=== PATIENT | male | born 1955 | race Caucasian/White ===

== ENCOUNTER → 2018-06-22 | Outpatient (CLI) | payer OTHER ==
--- NOTE | 2018-06-22 16:21 | CONS ---
CONSULTATION REASON FOR THE CONSULTATION: Disrupted sleep. 63-year-old male patient, obese with known history of coronary artery disease coming in for poor sleep quality. The patient has been having trouble in sleep initiation and maintenance. He goes to bed around 11:00 pm and sometimes taking up to a few hours to fall asleep. Any time he would fall asleep, he would wake up, and he has difficulty in initiating his sleep back again. On average, he is sleeping about 4-5 hours per night. He has been having issues with chronic insomnia for many years. Typically he is unable to sleep because of thinking of various stuff which distracts him from falling into sleep. Despite all this, the patient is able to wake up relatively refreshed and he does not fall asleep during the day. He is able to function appropriately without having problems with attention span or memory or concentration and he does not even fall asleep while doing day-to-day activities. He is able to drive long distances without falling asleep behind the wheel. He has chronic arthritic pain and pain obviously is an issue affecting his sleep quality in general. No sinus allergies. No headaches. No nocturnal heartburn at this point in time. No significant anxiety or depression or any other psychiatric disorder. No substance abuse. No alcoholism. Sleep hygiene measures are generally okay and the patient does not drink coffee in excess. No TV in the bedroom environment. He sleeps on his side. He does snore however and at times his has noted that he quits breathing. He is currently losing weight and has lost approximately 10-15 pounds and he is in the process of losing more weight. Especially after a recent heart attack that he experienced. PAST MEDICAL HISTORY: Obesity, coronary artery disease. Recent heart attack requiring coronary intervention and stenting, hyperlipidemia, osteoarthritis, obesity and hypertension. SURGICAL HISTORY: Includes catheterization and stenting x3. ALLERGIES: Not known. OUTPATIENT MEDICATION LIST: Includes metoprolol 50 mg twice a day. Lipitor 80 daily, Plavix 75 daily, lisinopril 20 daily, omeprazole 20 a day. Aspirin 325 daily. SOCIAL HISTORY: Nonsmoker. No history of alcohol. No history of IV drugs. Family history is negative for sleep apnea. REVIEW OF SYSTEMS: 12-point review of system was done. No sleep paralysis. No hallucinations. No cataplexy, the patient does not take any significant naps during the day. He is trying to lose weight. He used to weight 283 pounds approximately year ago. He is currently down to 250. He wakes up somewhere between 6-8 times per night. His sleep is very much fragmented. Does not watch TV in the bedroom. No grinding of the teeth. No restlessness in lower extremities. Pain is an issue and the patient becomes restless and tosses and turns because of ongoing arthritic pain. PHYSICAL EXAMINATION: BP is 133/80, pulse is 54, respirations 16, temperature 98.2, saturation 97% on room air. Weight is 254. Height is 5 feet 6 inches, neck size 18 inches and BMI is 40.9. General appearance: Calm and comfortable. Head is atraumatic, normocephalic. NECK: Short, supple. Mallampati class 4. No goiter or neck masses. Lungs diminished otherwise clear. HEART: Sounds are regular. Normal S1, S2. No S3. No murmurs. ABDOMEN: Soft, nontender. No organomegaly. EXTREMITIES: No edema. No cyanosis or clubbing. NEUROLOGIC: The patient is alert and oriented x3. There is no focal neurological deficits. SKIN: Negative for any wounds or ulceration. IMPRESSION: 1. Chronic insomnia with possibly a suspected component of obstructive sleep apnea. 2. Destructive sleep secondary to above. Rule out underlying sleep misconception. 3. Obesity with ongoing weight loss. The patient continues to lose weight for now. Current BMI is down to 40.9. 4. Coronary artery disease with previous myocardial infarction, stenting. 5. Hypertension. 6. Hyperlipidemia. PLAN: 1. Obviously the patient will need a sleep study to assess the sleep architecture, quality, maintenance and look for any other comorbidities such as obstructive sleep apnea and restless legs. 2. Will hold off the sleep study right now pending further weight loss. The patient is losing weight and will give another 3 months to plateau his weight as low as possible prior to doing a sleep study. 3. Sleep hygiene measures were discussed and all of them are appropriate. 4. Overall condition is stable. The patient does not have major hypersomnia or sleepiness. Lund score is 7. 5. Despite his report of insomnia, he has had no major tiredness and sleepiness and fatigue during the day. As such, we will wait till his weight plateaus and subsequently we will do a polysomnogram. MMODL / IJN: [id number] /
== END | disposition home or self-care (01) ==
LOC: SLEEP 13:12
PROVIDERS: ATTEND Internal Medicine
DX: F51.04 Psychophysiologic insomnia (principal); I25.10 Atherosclerotic heart disease of native coronary artery without angina pectoris; I10 Essential (primary) hypertension; E78.5 Hyperlipidemia, unspecified; I25.2 Old myocardial infarction; E66.9 Obesity, unspecified; Z68.41 Body mass index [BMI] 40.0-44.9, adult; Z79.899 Other long term (current) drug therapy; Z79.02 Long term (current) use of antithrombotics/antiplatelets; Z79.82 Long term (current) use of aspirin
CPT/HCPCS: 99211

== ENCOUNTER 2019-10-02 19:08 | Emergency (ER) | payer OTHER ==
[2019-10-02 19:16] VITALS: RESP 18; TEMP 97.6
[2019-10-02] MEDS ORDERED: SODIUM CHLORIDE 0.9% 500 ML 500 ML IV STA (19:43)
[2019-10-02] MEDS ORDERED: MECLIZINE 12.5 MG TAB PO STA (19:43)
--- NOTE | 2019-10-02 20:11 | ED ---
Dizziness HPI - General Chief Complaint: Dizziness Stated Complaint: Dizzy, nausea Time Seen by Provider: 10/02/19 19:34 Source: patient Mode of arrival: wheelchair Limitations: no limitations - History of Present Illness Initial Comments: 64-year-old male patient presents to the emergency department today for evaluation of dizziness. Patient states that early this morning while in bed he was stretching when he felt a snap in the lower part of his posterior neck and then had sudden onset of dizziness. Patient states that the dizziness has persisted throughout the day. Patient states that ever he sits up or stands up the room starts to spin. Patient states that he has had some mild discomfort to the neck. States he has chronic numbness and tingling to the hands which has not changed. He denies any pain radiation down the arms. Denies any headache, blurred vision, or double vision. Denies any chest pain or shortness of breath. Denies any vomiting but states he has been nauseous. Denies taking any medication for his symptoms. Denies history of similar symptoms. Patient denies any recent rash, fever, chills, abdominal pain, diarrhea, constipation, back pain, weakness, hematuria, dysuria, urinary urgency, urinary frequency, or any other complaints. - Related Data Home Medications Medication Instructions Recorded Confirmed Omeprazole 20 mg PO DAILY 10/07/17 10/07/17 Zolpidem [Ambien] 10 mg PO HS 10/08/17 10/08/17 Previous Rx's Medication Instructions Recorded Aspirin 81 mg PO DAILY chew 10/10/17 Atorvastatin [Lipitor] 80 mg PO DAILY #30 tab 10/10/17 Clopidogrel [Plavix] 75 mg PO DAILY #30 tab 10/10/17 Lisinopril [Zestril] 20 mg PO DAILY #30 tab 10/10/17 Metoprolol Tartrate [Lopressor] 50 mg PO BID #60 tab 10/10/17 Nitroglycerin Sl Tabs [Nitrostat] 0.4 mg SUBLINGUAL Q5M PRN #7 tab 10/10/17 Azithromycin 250 mg PO DAILY 4 Days #4 tab 10/02/19 Fluticasone Nasal [place] [Flonase 2 spr EA NOSTRIL DAILY #1 bottle 10/02/19 Nasal [place]escue] Loratadine [Claritin] 10 mg PO DAILY #30 tablet 10/02/19 Meclizine HCl 25 mg PO BID #14 tablet 10/02/19 Allergies Allergy/AdvReac Type Severity Reaction Status Date / Time No Known Allergies Allergy Verified 10/02/19 19:16 Review of Systems ROS Statement: Those systems with pertinent positive or pertinent negative responses have been documented in the HPI. ROS Other: All systems not noted in ROS Statement are negative. Past Medical History Past Medical History: GERD/Reflux, Hyperlipidemia, Hypertension, Myocardial Infarction (OK) History of Any Multi-Drug Resistant Organisms: None Reported Past Surgical History: Appendectomy, Heart Catheterization With Stent, Orthopedic Surgery Additional Past Surgical History / Comment(s): Neck surg. Past Anesthesia/Blood Transfusion Reactions: No Reported Reaction Past Psychological History: No Psychological Hx Reported Smoking Status: Never smoker Past Alcohol Use History: Rare Past Drug Use History: None Reported - Past Family History Mother Family Medical History: AICD/Pacemaker, Coronary Artery Disease (CAD), Myocardial Infarction (OK) Father Family Medical History: AFIB, Congestive Heart Failure (CHF), Coronary Artery Disease (CAD) General Exam Limitations: no limitations General appearance: alert, in no apparent distress, other (this is a well- developed, well-nourished adult male patient in no acute distress.) Eye exam: Present: normal appearance, PERRL, EOMI, nystagmus (bilateral horizontal gaze nystagmus). Absent: scleral icterus, conjunctival injection, periorbital swelling ENT exam: Present: normal exam, normal oropharynx, mucous membranes moist Neck exam: Present: normal inspection, full ROM, other (Nontender, no step-off, no deformity to firm midline palpation of the posterior cervical spine. Full range of motion without pain or limitation.). Absent: tenderness, meningismus, lymphadenopathy Respiratory exam: Present: normal lung sounds bilaterally. Absent: respiratory distress, wheezes, rales, rhonchi, stridor Cardiovascular Exam: Present: regular rate, normal rhythm, normal heart sounds. Absent: systolic murmur, diastolic murmur, rubs, gallop, clicks GI/Abdominal exam: Present: soft, normal bowel sounds. Absent: distended, tenderness, guarding, rebound, rigid Neurological exam: Present: alert, oriented X3, CN II-XII intact, normal gait Expanded Speech: Present: fluid speech Cranial nerves: EOM's Intact: Normal, Tongue Deviation: Normal Motor strength exam: RUE: 5, LUE: 5, RLE: 5, LLE: 5 Eye Response: (4) open spontaneously Motor Response: (6) obeys commands Verbal Response: (5) oriented [place] Total: 15 Psychiatric exam: Present: normal affect, normal mood Skin exam: Present: warm, dry, intact, normal color. Absent: rash Course Vital Signs 10/02/19 10/02/19 10/02/19 19:14 19:25 20:56 Temperature 97.6 F Pulse Rate 57 L 58 L Respiratory 18 18 Rate Blood Pressure 188/105 182/104 163/91 O2 Sat by Pulse 97 98 Oximetry EKG Findings - EKG Comments: EKG Findings:: EKG obtained in 194 shows sinus bradycardia with a ventricular rate of 56, HI interval 156, QRS duration 84, QT 426, QTc 411. No evidence of ST elevation or depression. Medical Decision Making - Medical Decision Making 64-year-old male patient presents to the emergency department today for evaluation of dizziness. patient reported stretching and feeling a pop in his neck prior to onset of symptoms. Physical examination is unremarkable. Patient is neurologically intact with no focal deficits. There is no cervical spinal tenderness. Blood pressure was quite elevated upon arrival. Labs reviewed and were unremarkable. CT brain without contrast was normal, CT angiography of the head and neck was obtained and was unremarkable. There was evidence of left maxillary sinusitis. Patient was given meclizine and IV fluids here in the emergency department. Upon reevaluation he does report improvement symptoms. He is able to ambulate without difficulty. He'll be discharged to follow-up with his primary care physician for recheck in 1-2 days. He'll be given prescriptions for Claritin, Flonase, and azithromycin for sinusitis. Return parameters discussed in detail. He verbalizes understanding and agrees with this plan. - Lab Data Result diagrams: 10/02/19 19:40 10/02/19 19:40 Lab Results 10/02/19 10/02/19 10/02/19 Range/Units 19:40 19:40 19:40 WBC 8.1 (3.8-10.6) k/uL RBC 5.45 (4.30-5.90) m/uL Hgb 15.4 (13.0-17.5) gm/dL Hct 47.5 (39.0-53.0) % MCV 87.1 (80.0-100.0) fL MCH 28.3 (25.0-35.0) pg MCHC 32.5 (31.0-37.0) g/dL RDW 13.7 (11.5-15.5) % Plt Count 299 (150-450) k/uL Neutrophils % 75 % Lymphocytes % 15 % Monocytes % 6 % Eosinophils % 1 % Basophils % 0 % Neutrophils # 6.1 (1.3-7.7) k/uL Lymphocytes # 1.2 (1.0-4.8) k/uL Monocytes # 0.5 (0-1.0) k/uL Eosinophils # 0.1 (0-0.7) k/uL Basophils # 0.0 (0-0.2) k/uL PT 10.1 (9.0-12.0) sec INR 0.9 (<1.2) APTT 22.3 (22.0-30.0) sec Sodium 139 (137-145) mmol/L Potassium 4.9 (3.5-5.1) mmol/L Chloride 105 (98-107) mmol/L Carbon Dioxide 22 (22-30) mmol/L Anion Gap 12 mmol/L BUN 15 (9-20) mg/dL Creatinine 0.74 (0.66-1.25) mg/dL Est GFR (CKD-EPI)AfAm >90 (>60 ml/min/1.73 sqM) Est GFR (CKD-EPI)NonAf >90 (>60 ml/min/1.73 sqM) Glucose 118 H (74-99) mg/dL Calcium 9.4 (8.4-10.2) mg/dL Total Bilirubin 0.6 (0.2-1.3) mg/dL AST 23 (17-59) U/L ALT 22 (4-49) U/L Alkaline Phosphatase 116 (38-126) U/L Troponin I (0.000-0.034) ng/mL Total Protein 7.6 (6.3-8.2) g/dL Albumin 4.4 (3.5-5.0) g/dL Urine Color Urine Appearance (Clear) Urine pH (5.0-8.0) Ur Specific [place] (1.001-1.035) Urine Protein (Negative) Urine Glucose (UA) (Negative) Urine Ketones (Negative) Urine Blood (Negative) Urine Nitrite (Negative) Urine Bilirubin (Negative) Urine Urobilinogen (<2.0) mg/dL Ur Leukocyte Esterase (Negative) 10/02/19 10/02/19 Range/Units 19:40 21:00 WBC (3.8-10.6) k/uL RBC (4.30-5.90) m/uL Hgb (13.0-17.5) gm/dL Hct (39.0-53.0) % MCV (80.0-100.0) fL MCH (25.0-35.0) pg MCHC (31.0-37.0) g/dL RDW (11.5-15.5) % Plt Count (150-450) k/uL Neutrophils % % Lymphocytes % % Monocytes % % Eosinophils % % Basophils % % Neutrophils # (1.3-7.7) k/uL Lymphocytes # (1.0-4.8) k/uL Monocytes # (0-1.0) k/uL Eosinophils # (0-0.7) k/uL Basophils # (0-0.2) k/uL PT (9.0-12.0) sec INR (<1.2) APTT (22.0-30.0) sec Sodium (137-145) mmol/L Potassium (3.5-5.1) mmol/L Chloride (98-107) mmol/L Carbon Dioxide (22-30) mmol/L Anion Gap mmol/L BUN (9-20) mg/dL Creatinine (0.66-1.25) mg/dL Est GFR (CKD-EPI)AfAm (>60 ml/min/1.73 sqM) Est GFR (CKD-EPI)NonAf (>60 ml/min/1.73 sqM) Glucose (74-99) mg/dL Calcium (8.4-10.2) mg/dL Total Bilirubin (0.2-1.3) mg/dL AST (17-59) U/L ALT (4-49) U/L Alkaline Phosphatase (38-126) U/L Troponin I <0.012 (0.000-0.034) ng/mL Total Protein (6.3-8.2) g/dL Albumin (3.5-5.0) g/dL Urine Color Yellow Urine Appearance Clear (Clear) Urine pH 7.0 (5.0-8.0) Ur Specific [place] 1.019 (1.001-1.035) Urine Protein Trace H (Negative) Urine Glucose (UA) Negative (Negative) Urine Ketones Negative (Negative) Urine Blood Negative (Negative) Urine Nitrite Negative (Negative) Urine Bilirubin Negative (Negative) Urine Urobilinogen <2.0 (<2.0) mg/dL Ur Leukocyte Esterase Negative (Negative) - Radiology Data Radiology results: report reviewed, image reviewed CT angio head and neck was obtained. Report was reviewed in its entirety. Impression by Dr. Gamble shows negative CT angiogram of the neck. Negative CT angiogram of the brain. 2 views of the chest are obtained. Report was reviewed in its entirety. No active cardiopulmonary disease. Normal heart. CT brain without contrast obtained. Report was reviewed in its entirety. Impression by Dr. Gamble shows negative computed tomography scan of the brain. Left maxillary sinusitis noted. Disposition Clinical Impression: Dizziness, Left maxillary sinusitis, Hypertension Disposition: HOME SELF-CARE Condition: Good Instructions (If sedation given, give patient instructions): Sinusitis (ED), Chronic Hypertension (ED), Dizziness (ED) Additional Instructions: take medications as directed. Primary care physician for recheck in 1-2 days. Return to the emergency department immediately for any new, worsening, or concerning symptoms. Prescriptions: Azithromycin 250 mg PO DAILY 4 Days #4 tab Loratadine [Claritin] 10 mg PO DAILY #30 tablet Fluticasone Nasal [place] [Flonase Nasal [place]ue] 2 spr EA NOSTRIL DAILY #1 bottle Meclizine HCl 25 mg PO BID #14 tablet Is patient prescribed a controlled substance at d/c from ED?: No Referrals: Tito Toussaint MD [Primary Care Provider] - 1-2 days Time of Disposition: 21:52
[2019-10-02 20:21] LABS: Basophils % (A) 0 %; Eosinophils # (A) 0.1 k/uL (0-0.7); Eosinophils % (A) 1 %; HCT 47.5 % (39.0-53.0); HGB 15.4 gm/dL (13.0-17.5); Lymphocytes # (A) 1.2 k/uL (1.0-4.8); Lymphocytes % (A) 15 %; MCH 28.3 pg (25.0-35.0); MCHC 32.5 g/dL (31.0-37.0); MCV 87.1 fL (80.0-100.0); Mean Platelet Volume 6.9; Monocytes # (A) 0.5 k/uL (0-1.0); Monocytes % (A) 6 %; Neutrophils # (A) 6.1 k/uL (1.3-7.7); Neutrophils % (A) 75 %; Platelet Count 299 k/uL (150-450); RBC 5.45 m/uL (4.30-5.90); RDW 13.7 % (11.5-15.5); WBC 8.1 k/uL (3.8-10.6)
[2019-10-02 20:32] LABS: ALT 22 U/L (4-49); AST 23 U/L (17-59); African American GFR (CKD) >90 (>60 ml/min/1.73 sqM); Albumin 4.4 g/dL (3.5-5.0); Alkaline Phosphatase 116 U/L (38-126); Anion Gap 12 mmol/L; Blood Urea Nitrogen 15 mg/dL (9-20); Calcium 9.4 mg/dL (8.4-10.2); Carbon Dioxide 22 mmol/L (22-30); Chloride 105 mmol/L (98-107); Glucose 118 mg/dL (74-99); INR 0.9 (<1.2); Non-African American GFR(CKD) >90 (>60 ml/min/1.73 sqM); Partial Thromboplastin Time 22.3 sec (22.0-30.0); Potassium 4.9 mmol/L (3.5-5.1); Prothrombin Time 10.1 sec (9.0-12.0); Sodium 139 mmol/L (137-145); Total Bilirubin 0.6 mg/dL (0.2-1.3); Total Protein 7.6 g/dL (6.3-8.2)
--- NOTE | 2019-10-02 21:14 | CT ---
EXAMINATION TYPE: CT brain wo con DATE OF EXAM: 10/02/2019 COMPARISON: None HISTORY: Dizziness. CT DLP: 1142.8 mGycm Automated exposure control for dose reduction was used. Ventricles have fairly normal size. There is no mass effect nor midline shift. There is no sign of in tracranial hemorrhage. The calvarium is intact. Skull base appears normal. There is some debris in th e right external auditory canal. IMPRESSION: Negative CT scan of the brain. left maxillary sinusitis noted.
--- NOTE | 2019-10-02 21:16 | XR ---
EXAMINATION TYPE: XR chest 2V DATE OF EXAM: 10/02/2019 COMPARISON: 10/07/2017 HISTORY: Dizziness and wheezing TECHNIQUE: 2 views FINDINGS: There is no heart failure nor confluent pneumonic infiltrate. Costophrenic angles are clear . There are chest leads. IMPRESSION: No active cardiopulmonary disease. Normal heart.
--- NOTE | 2019-10-02 21:30 | CT ---
EXAMINATION TYPE: CT angio head neck DATE OF EXAM: 10/02/2019 COMPARISON: HISTORY: Dizziness. CT DLP: 964.2 mGycm Automated exposure control for dose reduction was used. CONTRAST: Performed with IV Contrast, patient injected with 65 mL of Isovue 370. Multiple axial sections were obtained from the aortic arch to the vertex of the brain with intravenou s contrast. There are 3-D post processed images. There is normal branching pattern of the great vessels on the aortic arch. There is bilateral arteria l flow in the subclavian arteries. There is arterial flow in the vertebral arteries bilaterally. Vert ebral arteries are fairly symmetric. There is arterial flow in the common internal and external carot id arteries bilaterally. There is no evidence of stenosis. There is no evidence of carotid or vertebr al artery aneurysm or dissection. There is arterial flow in the vertebrobasilar artery system. There is arterial flow in the anterior m iddle and posterior cerebral arteries. There is no mass effect. There is no evidence of aneurysm or n eovascularity. There is normal contrast opacification of the venous sinuses. I see no evidence of intracranial arterial stenosis. IMPRESSION: Negative CT angiogram of the neck. Negative CT angiogram of the brain.
[2019-10-02 21:34] LABS: Appearance,Urine Clear (Clear); Bilirubin,Urine Negative (Negative); Blood,Urine Negative (Negative); Color,Urine Yellow; Glucose,Urine (UA) Negative (Negative); Ketones,Urine Negative (Negative); Leukocyte Esterase,Urine Negative (Negative); Nitrite,Urine Negative (Negative); Protein,Urine Trace (Negative); Specific Gravity,Urine 1.019 (1.001-1.035); Urobilinogen,Urine <2.0 mg/dL (<2.0)
[2019-10-02] MEDS ORDERED: AZITHROMYCIN 500 MG TAB PO STA (21:49)
[2019-10-02 22:10] VITALS: BP 139/82; PULSE 88
== END 2019-10-02 22:14 | disposition home or self-care (01) ==
LOC: EC 19:08
DX: I10 Essential (primary) hypertension (principal); R42 Dizziness and giddiness; J32.0 Chronic maxillary sinusitis; R11.0 Nausea; R20.0 Anesthesia of skin; R20.2 Paresthesia of skin; K21.9 Gastro-esophageal reflux disease without esophagitis; I25.2 Old myocardial infarction; Z95.5 Presence of coronary angioplasty implant and graft; Z79.899 Other long term (current) drug therapy
CPT/HCPCS: 36415; 93005; 80053; 84484; 85025; 85610; 85730; 81003; 71046; 70496; 70450; 70498; 99284; Q9967

== ENCOUNTER 2019-11-13 11:12 | Emergency (ER) | payer OTHER ==
[2019-11-13 11:21] VITALS: BP 160/99; PULSE 56; RESP 18; TEMP 97.5
[2019-11-13] MEDS ORDERED: KETOROLAC 30 MG/ML 1 ML VIAL IM STA (12:05)
--- NOTE | 2019-11-13 12:46 | XR ---
EXAMINATION TYPE: XR Hip RT and AP Pelvis , 3 VIEWS DATE OF EXAM ORDERED: 11/13/2019 HISTORY: hip pain. COMPARISON: None. FINDINGS: Osseous structures about the pelvis are unremarkable. No fracture or dislocation is seen. Hip joints are reasonably well-maintained. There is some vascular calcification on the left. IMPRESSION: NO ACUTE OSSEOUS LESION.
--- NOTE | 2019-11-13 12:53 | CT ---
EXAMINATION TYPE: CT lumbar spine wo con DATE OF EXAM: 11/13/2019 12:36 PM COMPARISON: None. HISTORY: Hip and back pain CT DLP: 2429.4 mGycm Automated exposure control for dose reduction was used. Unenhanced CT of the lumbar spine was performed. Bone and soft tissue window settings are submitted as well as coronal and sagittal reconstructions. FINDINGS: Visualized portions of the lungs are clear. There is a 1.3 cm fatty mass involving the right adrenal gland. This undoubtedly represents a myolipo ma. There is minimal atheromatous calcification of the aorta. Paraspinal soft tissues are otherwise n ormal. There is a minimal retrograde listhesis of L4 and L5. Alignment is otherwise maintained. At T12-L1, there is disc space loss and a vacuum phenomena. This hypertrophic spondylosis present. In tervertebral foramina are well maintained. There is no significant compressive discopathy. The facets are unremarkable. L1-L2: No definite abnormality is seen. L2-L3: Intervertebral foramina are well maintained. There is a diffuse disc displacement mildly effac ing the thecal sac. There is mild hypertrophic change in the facets. L3-L4: The intervertebral foramina are well maintained. There is a diffuse disc displacement. This is effacing the thecal sac. There are mild hypertrophic changes in the facets. L4-L5: There is disc space loss and a vacuum phenomena. There is a mild retrograde listhesis of L4 an d L5. There is a mild pseudodisc. There are hypertrophic changes in the facets. There is mild trefoil ing of the thecal sac. L5-S1: There is mild, bilateral intervertebral foraminal narrowing. There is no significant compressi ve discopathy. There are marked hypertrophic changes in the facets. IMPRESSION: 1. 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 2. MILD RETROGRADE LISTHESIS OF L4 AND L5 DEGENERATIVE IN NATURE. 3. BILATERAL INTERVERTEBRAL FORAMINAL NARROWING, L5-S1 DUE TO MARKED HYPERTROPHIC CHANGES IN THE FACE TS.
--- NOTE | 2019-11-13 13:17 | ED ---
General Adult HPI - General Chief complaint: Extremity Problem,Nontraumatic Stated complaint: Hip pain Time Seen by Provider: 11/13/19 11:35 Source: patient, RN notes reviewed Mode of arrival: wheelchair Limitations: no limitations - History of Present Illness Initial comments: 64-year-old male with a past medical history of hyperlipidemia, hypertension, GERD presents to the emergency department for a chief of right hip and calf pain. Patient states he has had calf numbness for about a year. States that in the past 3 days he has not cramping pain in his calf. States he also has a new pain in his right hip that goes through his buttock. States that when he lifts his leg the pain shoots down his leg. States he has chronic back pain. Denies numbness in the groin or buttock. Denies bladder or bowel changes. States his right hip pain is difficult to ambulate on but he denies injuries. No fevers or chills. Patient is on Plavix for cardaic stents. Patient has no other complaints at this time including shortness of breath, chest pain, abdominal pain, nausea or vomiting, headache, or visual changes. - Related Data Home Medications Medication Instructions Recorded Confirmed Omeprazole 20 mg PO DAILY 10/07/17 10/07/17 Zolpidem [Ambien] 10 mg PO HS 10/08/17 10/08/17 Previous Rx's Medication Instructions Recorded Aspirin 81 mg PO DAILY chew 10/10/17 Atorvastatin [Lipitor] 80 mg PO DAILY #30 tab 10/10/17 Clopidogrel [Plavix] 75 mg PO DAILY #30 tab 10/10/17 Lisinopril [Zestril] 20 mg PO DAILY #30 tab 10/10/17 Metoprolol Tartrate [Lopressor] 50 mg PO BID #60 tab 10/10/17 Nitroglycerin Sl Tabs [Nitrostat] 0.4 mg SUBLINGUAL Q5M PRN #7 tab 10/10/17 Azithromycin 250 mg PO DAILY 4 Days #4 tab 10/02/19 Fluticasone Nasal [place] [Flonase 2 spr EA NOSTRIL DAILY #1 bottle 10/02/19 Nasal [place]] Loratadine [Claritin] 10 mg PO DAILY #30 tablet 10/02/19 Meclizine HCl 25 mg PO BID #14 tablet 10/02/19 Acetaminophen [Tylenol] 500 mg PO Q4-6H PRN #20 tab 11/13/19 Ibuprofen [Motrin] 600 mg PO Q8HR PRN #20 tab 11/13/19 predniSONE 50 mg PO DAILY #5 tablet 11/13/19 Allergies Allergy/AdvReac Type Severity Reaction Status Date / Time No Known Allergies Allergy Verified 11/13/19 11:21 Review of Systems ROS Statement: Those systems with pertinent positive or pertinent negative responses have been documented in the HPI. ROS Other: All systems not noted in ROS Statement are negative. Past Medical History Past Medical History: GERD/Reflux, Hyperlipidemia, Hypertension, Myocardial Infarction (MD) History of Any Multi-Drug Resistant Organisms: None Reported Past Surgical History: Appendectomy, Heart Catheterization With Stent, Orthopedic Surgery Additional Past Surgical History / Comment(s): Neck surg. Past Anesthesia/Blood Transfusion Reactions: No Reported Reaction Past Psychological History: No Psychological Hx Reported Smoking Status: Never smoker Past Alcohol Use History: Rare Past Drug Use History: None Reported - Past Family History Mother Family Medical History: AICD/Pacemaker, Coronary Artery Disease (CAD), Myocardial Infarction (MD) Father Family Medical History: AFIB, Congestive Heart Failure (CHF), Coronary Artery Disease (CAD) General Exam Limitations: no limitations General appearance: alert, in no apparent distress Head exam: Present: atraumatic, normocephalic, normal inspection Eye exam: Present: normal appearance, PERRL, EOMI. Absent: scleral icterus, conjunctival injection, periorbital swelling ENT exam: Present: normal exam, mucous membranes moist Neck exam: Present: normal inspection, full ROM. Absent: tenderness, meningismus, lymphadenopathy Respiratory exam: Present: normal lung sounds bilaterally. Absent: respiratory distress, wheezes, rales, rhonchi, stridor Cardiovascular Exam: Present: regular rate, normal rhythm, normal heart sounds. Absent: systolic murmur, diastolic murmur, rubs, gallop, clicks GI/Abdominal exam: Present: soft, normal bowel sounds. Absent: distended, tenderness, guarding, rebound, rigid Extremities exam: Present: full ROM (Patient has full flexion of the right hip when the knee is bent. However patient has pain in the right buttock and hip when the hip is flexed with the knee extended.), normal capillary refill (cap refill less than 2 seconds, DP pulse 2+ in the right lower extremity.), other (Positive straight leg raise test. Skin exam is normal. No erythema or evidence of cellulitis. ). Absent: tenderness (No tenderness of the right hip.), pedal edema, calf tenderness (No tenderness of the calf. No erythema or edema noted of the right calf.) Back exam: Absent: vertebral tenderness Course Vital Signs 11/13/19 11:19 Temperature 97.5 F L Pulse Rate 56 L Respiratory 18 Rate Blood Pressure 160/99 O2 Sat by Pulse 97 Oximetry Medical Decision Making - Medical Decision Making 64-year-old male presents to the emergency department for a chief complaint of right calf pain. This is also accompanied with back pain as well as right buttock pain. Worsens with extension of the knee and flexion of the hip, posi tive straight leg raise test. Neurovascular intact in the right lower extremity. Patient ambulatory. Ultrasound negative for DVT. CT of the lumbar spine shows degenerative changes. No obvious disc herniation. Hip and pelvis x-ray shows no acute osseous lesion. Patient was given pain medications, feeling much better. He was also evaluated by Dr. Marquez who did a physical exam. Distant with sciatica nerve pain. Patient will be treated with steroids and pain medication. He does not have a history of diabetes. He will follow up with primary care tomorrow and will also be given the name of orthopedics. Disposition Clinical Impression: Leg pain, right Disposition: HOME SELF-CARE Condition: Good Instructions (If sedation given, give patient instructions): Lumbar Radiculopathy (ED) Additional Instructions: Please take Motrin and Tylenol alternating as needed. Please take steroid as directed. Be sure to eat while taking Motrin and steroid together as they can cause stomach erosion. Please follow-up with primary care tomorrow. Follow-up with orthopedics in one to 2 days. Return to the emergency Department if you're having any worsening symptoms. Prescriptions: Ibuprofen [Motrin] 600 mg PO Q8HR PRN #20 tab PRN Reason: Pain predniSONE 50 mg PO DAILY #5 tablet Acetaminophen [Tylenol] 500 mg PO Q4-6H PRN #20 tab PRN Reason: Pain Is patient prescribed a controlled substance at d/c from ED?: No Referrals: Jacinto Haines MD [Primary Care Provider] - 1-2 days Time of Disposition: 15:02
[2019-11-13] MEDS ORDERED: MORPHINE SULFATE 4 MG/ML SYRINGE IM STA (13:58)
--- NOTE | 2019-11-13 14:10 | US ---
EXAMINATION TYPE: US venous doppler duplex LE RT DATE OF EXAM: 11/13/2019 1:31 PM COMPARISON: NONE CLINICAL HISTORY: L calf pain. Right calf pain, and numbness, no h/o dvt SIDE PERFORMED: Right TECHNIQUE: The lower extremity deep venous system is examined utilizing real time linear array sonog justin with graded compression, doppler sonography and color-flow sonography. VESSELS IMAGED: External Iliac Vein (EIV) Common Femoral Vein Deep Femoral Vein Greater Saphenous Vein * Femoral Vein Popliteal Vein Small Saphenous Vein * Proximal Calf Veins (* superficial vessels) *Unable to fully compress right EIV due to patient baring down, unable tolerate pressure and relax to achieve compression, good blood flow with no signs of clot at EIV Right Leg: Appears negative for DVT at this time, rouleaux flow was noted within prx calf veins up t hrough popiteal vein, good compression and blood flow was seen, just slower then normal. IMPRESSION: No evidence of deep venous thrombosis in the right leg.
[2019-11-13] MEDS ORDERED: predniSONE 50 MG TAB PO STA (14:59)
[2019-11-13] MEDS ORDERED: ACET/COD 300 MG/30 MG STARTER PACK 6 TAB BTL PO STA (14:59)
== END 2019-11-13 15:30 | disposition home or self-care (01) ==
LOC: EC 11:12
DX: M25.551 Pain in right hip (principal); M79.661 Pain in right lower leg; G89.29 Other chronic pain; M47.816 Spondylosis without myelopathy or radiculopathy, lumbar region; K21.9 Gastro-esophageal reflux disease without esophagitis; I10 Essential (primary) hypertension; I25.2 Old myocardial infarction; Z79.02 Long term (current) use of antithrombotics/antiplatelets; Z79.899 Other long term (current) drug therapy; Z95.5 Presence of coronary angioplasty implant and graft
CPT/HCPCS: 73502; 93971; 72131; 99284; 96372 ×2; J2270; J1885; J7512

== ENCOUNTER → 2019-12-19 | Outpatient (CLI) | payer OTHER ==
[2019-12-19 12:07] VITALS: BP 173/62; PULSE 79; RESP 16
--- NOTE | 2019-12-20 13:51 | P.PAINCN ---
History of Present Illness - Reason for Consult Consult date: 12/19/19 - History of Present Illness This is a 64-year-old patient referred by Dr. Haines with a chief complaint of chronic pain in right low back with radiation to and right hip, lateral aspect of right leg, lateral aspect of right calf, ending just above the ankle. Back pain equals leg pain in intensity. He does complain of subjective weakness, stating that his legs "weigh 50 pounds" and feels that his gait has slowed down. He does have associated numbness from below-knee- lateral aspect of calf and entire foot. He has had low back pain for over a year, it has significantly worsened over the last month. He went to the emergency room approximately 1 month ago for pain and was given a steroid taper, he is currently on the last week of the taper. He rates his pain as 3/10 currently. Pain is worse with walking, in the mornings and better with rest, heat, medications. Medications include Tylenol 3 and Flexeril. He is experiencing mild side effects of the form of constipation and drowsiness. He has not had physical therapy in the past, he has not had any prior pain procedures, he has not undergone surgery. Patient denies adverse drug effects from medications. Patient also denies new-onset weakness, bowel/bladder incontinence, or any other signs or symptoms of cauda equina syndrome. There are no signs of acute intoxication, and no indications of medication diversion or overuse. In addition to above, 13-point review of systems is also negative for chest pain, shortness of breath, changes in vision, changes in hearing, new onset weakness, abdominal pain, diarrhea, extreme fatigue, malaise, fever, skin changes, homicidal or suicidal ideation, or bowel or bladder incontinence. Physical exam: Vital Signs: Reviewed in EMR, not his blood pressure is elevated at 173/69. GENERAL: Well appearing, in no acute distress, morbidly obese PSYCH: Mood and affect is appropriate. Awake, alert, and oriented SKIN: Skin color, texture, turgor normal, no rashes or lesions HEENT: Normocephalic, atraumatic. EOM intact CV: No pedal edema RESP: Respirations are unlabored, no audible wheezing GI: Abdomen non-distended MUSCULOSKELETAL: Bilateral lower extremity strength is normal and symmetric. No atrophy or tone abnormalities are noted. Lumbar spine: Straight leg raising in the sitting position is positive on the right side for radicular pain. No pain to palpation over the lumbar spine and paraspinous muscles. Negative for pain with facet loading and back extension/rotation. Normal range of motion without pain reproduction Buttocks: No pain to palpation over the PSIS, Kingsley test is negative Extremities: Peripheral joint ROM is full and pain free without obvious instability or laxity in all four extremities. No edema or skin discolorations noted. Gait: Gait is normal NEUR: Bilateral lower extremity coordination and muscle stretch reflexes are physiologic and symmetric. Negative clonus. Loss of sensation to light touch noted in right lateral calf. Cranial nerves are grossly intact. Imaging: CT lumbar spine from October 2019 at [facility] shows disc space loss and vacuum phenomenon at L4-5 with mild retrograde listhesis of L4 on L5. At L5-S1 there is marked hypertrophic changes, bilateral neuroforaminal narrowing. No significant spinal canal stenosis. Assessment: 1. Lumbar radiculopathy 2. Lumbar degenerative disc disease 3. Morbid obesity 4. Lumbar spondylosis 5. Coronary artery disease, with stents in place, currently on Plavix 6. Hypertension Plan: 1. Explanation: Diagnoses, prognoses, and multiple treatment options including but not limited to physical therapy, interventional therapies, medication management and surgery were discussed with the patient and all questions were answered to the patient's satisfaction. 2. Investigations: CT lumbar spine reviewed 3. Counseling: The patient was counseled on the importance of BODY MASS INDEX, EXERCISE. Specifically, the patient was instructed regarding the importance of weight control, and exercise in the context of both chronic pain and overall health. 4. Procedures: We will schedule right-sided transforaminal epidural steroid injection at L4-5 and L5-S1. Of note, the patient is on Plavix, this will need to be held for the procedure, we will obtain cardiac clearance. 5. Consultations: Patient was instructed to follow up with primary care physician regarding hypertension, he is scheduled to visit primary care physician the next few days. 6. Medications: No changes 7. Disposition: For above-mentioned procedure Past Medical History Past Medical History: Coronary Artery Disease (CAD), GERD/Reflux, Hyperlipidemia, Hypertension, Myocardial Infarction (MD) Additional Past Medical History / Comment(s): back pain, tinnitus Last Myocardial Infarction Date:: 2017 History of Any Multi-Drug Resistant Organisms: None Reported Past Surgical History: Appendectomy, Heart Catheterization With Stent, Orthopedic Surgery Additional Past Surgical History / Comment(s): Neck surg. 3 heart stent Past Anesthesia/Blood Transfusion Reactions: No Reported Reaction Date of Last Stent Placement:: 09/2018 Smoking Status: Never smoker - Past Family History Mother Family Medical History: AICD/Pacemaker, Coronary Artery Disease (CAD), Myocardial Infarction (MD) Father Family Medical History: AFIB, Congestive Heart Failure (CHF), Coronary Artery Disease (CAD) Medications and Allergies Home Medications Medication Instructions Recorded Confirmed Type Omeprazole 20 mg PO DAILY 10/07/17 12/19/19 History Aspirin 81 mg PO DAILY chew 10/10/17 12/19/19 Rx Atorvastatin [Lipitor] 80 mg PO DAILY #30 tab 10/10/17 12/19/19 Rx Clopidogrel [Plavix] 75 mg PO DAILY #30 tab 10/10/17 12/19/19 Rx Lisinopril [Zestril] 20 mg PO DAILY #30 tab 10/10/17 12/19/19 Rx Metoprolol Tartrate [Lopressor] 50 mg PO BID #60 tab 10/10/17 12/19/19 Rx Nitroglycerin Sl Tabs [Nitrostat] 0.4 mg SUBLINGUAL Q5M PRN #7 tab 10/10/17 12/19/19 Rx Fluticasone Nasal [place] [Flonase 2 spr EA NOSTRIL DAILY #1 bottle 10/02/19 12/19/19 Rx Nasal [place]] Acetaminophen-Codeine 300-30mg 1 tab PO TID 12/15/19 12/19/19 History [Tylenol w/codeine #3] Cyclobenzaprine [Flexeril] 10 mg PO DIRECTED PRN 12/15/19 12/19/19 History predniSONE 20 mg PO DAILY 12/15/19 12/19/19 History Allergies Allergy/AdvReac Type Severity Reaction Status Date / Time No Known Allergies Allergy Verified 12/15/19 14:03 PQRS Measure Charge Sheet Measure #130: Documentation of Current Meds in Medical Chart: Patient's medications documented in chart Measure #226: Tobacco Use: Screen & Cessation Intervention: Pt not a tobacco user Measure #111: Pneumonia Vaccination: Pneumococcal vaccine NOT administered or previously given Measure #47: Advance Care Plan: Advance care planning discussed & documented, pt chose/unable to give Measure #412: Opioid Treatment Agreement: No documentation of signed opioid treatment agreement Measure #408: Opioid Therapy Follow-up Evaluation: Patient had NO f/u eval minimum every 3 months during opioid therapy Measure #317: Preventitive Care & Scrn High Bld Press & F/U: Pre-hypertensive or hypertensive BP documented, pt will f/u with PCP Measure #128: Body Mass Index (BMI) Screening & Follow-up: BMI documented ABOVE normal parameters - f/u documented Measure #131: Pain Assessment & Follow-up: Pain positive & plan documented, Follow-up scheduled Measure #431: Unhealthy Alcohol Use Preventative Care & Scrn: Patient not identified as an unhealthy alcohol user PQRS Narrative: Smoking Status Never smoker Pain Intensity [Back] 3 Scale Used Numeric (1 - 10) Home Medications: Ambulatory Orders Omeprazole 20 mg PO DAILY 10/07/17 Aspirin 81 mg PO DAILY chew 10/10/17 Atorvastatin [Lipitor] 80 mg PO DAILY #30 tab 10/10/17 Clopidogrel [Plavix] 75 mg PO DAILY #30 tab 10/10/17 Lisinopril [Zestril] 20 mg PO DAILY #30 tab 10/10/17 Metoprolol Tartrate [Lopressor] 50 mg PO BID #60 tab 10/10/17 Nitroglycerin Sl Tabs [Nitrostat] 0.4 mg SUBLINGUAL Q5M PRN #7 tab 10/10/17 Fluticasone Nasal [place] [Flonase Nasal [place]] 2 spr EA NOSTRIL DAILY #1 bottle 10/02/19 Acetaminophen-Codeine 300-30mg [Tylenol w/codeine #3] 1 tab PO TID 12/15/19 Cyclobenzaprine [Flexeril] 10 mg PO DIRECTED PRN 12/15/19 predniSONE 20 mg PO DAILY 12/15/19
== END | disposition home or self-care (01) ==
LOC: PNWHC3 11:23
PROVIDERS: ATTEND Anesthesiology
DX: G89.29 Other chronic pain (principal); M51.16 Intervertebral disc disorders with radiculopathy, lumbar region; E66.01 Morbid (severe) obesity due to excess calories; M47.26 Other spondylosis with radiculopathy, lumbar region; I25.10 Atherosclerotic heart disease of native coronary artery without angina pectoris; Z68.42 Body mass index [BMI] 45.0-49.9, adult; I10 Essential (primary) hypertension; Z79.82 Long term (current) use of aspirin; Z79.899 Other long term (current) drug therapy
CPT/HCPCS: 99211

== ENCOUNTER 2020-05-01 07:45 | Day surgery (SDC) | payer OTHER ==
[2020-04-17 12:41] VITALS: BMI 47.0
[~2020-05-01 07:45] MED LIST: LACTATED RINGERS 1,000 ML IV SCH
[2020-05-01 08:15] VITALS: TEMP 97.1
[2020-05-01] MEDS ORDERED: methylPREDNISolone ACETATE 40 MG/ML 1 ML VIAL ONE (08:27)
[2020-05-01] MEDS ORDERED: fentaNYL (PF) 50 MCG/ML 2 ML AMP ONE (08:27)
[2020-05-01] MEDS ORDERED: IOPAMIDOL M200 10 ML VIAL ONE (08:27)
[2020-05-01] MEDS ORDERED: MIDAZOLAM 2 MG/2 ML VIAL ONE (08:27)
--- NOTE | 2020-05-01 08:48 | P.PCN ---
Date of Procedure: 05/01/20 Procedure(s) Performed: PREOPERATIVE DIAGNOSIS: Lumbar radiculopathy . Lumbar degenerative disc disease. Lumbar spondylosis with lumbar facet arthropathy POSTOPERATIVE DIAGNOSIS: Same as preoperative diagnoses. PROCEDURE 1. Transforaminal epidural steroid injection under fluoroscopic guidance at right L4-5, and right L5-S1 levels. (Fluoroscopy images stored on file in the radiology Department ) 2. Lumbar epidurogram : ANESTHESIA: Local with 1% lidocaine 3 ml , moderate sedation with intravenous Versed 2 mg and fentanyle 50 micrograms EBL: Minimal PROCEDURE INDICATION: The patient with low back pain and radiculopathy symptoms unresponsive to conservative treatment. PROCEDURE DESCRIPTION / TECHNIQUE: The patient was seen and identified in the preoperative area. Risks, benefits, complications, and alternatives were discussed with the patient. The patient agreed to proceed with the procedure and signed the consent. IV was started, and vital signs were stable. Patient was taken to the OR and time out was completed. The patient was placed in the prone position on procedure table and a pillow was placed under the abdomen to reduce lumbar lordosis. The lumbosacral area was prepped and draped in the usual sterile fashion. Critical pause was taken. Vital signs were closely monitored during the procedure. Conscious sedation was used during the procedure to decrease patient s anxiety. Using oblique fluoroscopy, the chin of the ``Hitesh dog at right L4-5 level was identified, and the skin and deeper tissues just below was localized with 1% lidocaine. Subsequently, a 22-gauge 5-inch spinal needle was advanced under a tunneled view fluoroscopic guidance just underneath the chin of the ``Hitesh dog at the right L4-5 Under lateral fluoroscopy, the needle was then advanced to the posterior border of the interforaminal space. After negative aspiration of CSF and blood and with no paresthesias, 1 mL Isovue 200 contrast dye was injected excellent epidurogram and outlining of the nerve root Subsequently, 3 mL of block solution containing 40 mg Depo-Medrol and 2 mL of 0.9% normal saline PF was injected. Needle was removed and the same procedure was repeated at the right L5-S1 level . At the end of the procedure, skin was cleansed, and bandages were applied. COMPLICATIONS:none DISPOSITION / PLANS: The patient was placed in a supine position and transferred to the recovery area in a stable condition for observation. There was no evidence of lower extremity motor or sensory deficit after the procedure. Patient was discharged from the recovery room after meeting discharge criteria. Home discharge instructions were given to the patient by the staff. The patient was reexamined prior to discharge.
[2020-05-01] MEDS ORDERED: LACTATED RINGERS 1,000 ML IV ONE ×2 (08:51)
--- NOTE | 2020-05-01 08:55 | FL ---
Fluoroscopy INDICATION: Pain FINDINGS: Fluoroscopy time: 14 seconds. Images obtained: 1. IMPRESSIONS: 1. Documentation of fluoroscopy.
[2020-05-01 09:14] VITALS: BP 125/83; PULSE 72; RESP 20
[2020-05-01] MEDS ORDERED: IV FLUID CONTINUATION 800 ML IV ONE (09:22)
== END 2020-05-01 09:28 | disposition home or self-care (01) ==
LOC: ORPAIN 07:45
PROVIDERS: ATTEND Specialist
DX: M47.26 Other spondylosis with radiculopathy, lumbar region (principal); M51.16 Intervertebral disc disorders with radiculopathy, lumbar region; I25.10 Atherosclerotic heart disease of native coronary artery without angina pectoris; Z79.02 Long term (current) use of antithrombotics/antiplatelets; Z79.82 Long term (current) use of aspirin
CPT/HCPCS: 64483; 64484; J2250; J1030; J3010; Q9966; 99152

== ENCOUNTER → 2020-05-31 | Day surgery (SDC) | payer MEDICARE, OTHER ==
[2020-05-25 12:04] VITALS: BMI 47.0
[~2020-05-31] MED LIST changes: +IOPAMIDOL M200 10 ML VIAL ONE; +IV FLUID CONTINUATION 1,000 ML IV ONE; +LIDOCAINE 1% (10MG/ML) FOR IV START INTRADERMA ONE; +MIDAZOLAM 2 MG/2 ML VIAL ONE; +fentaNYL (PF) 50 MCG/ML 2 ML AMP ONE; +methylPREDNISolone ACETATE 40 MG/ML 1 ML VIAL ONE
[2020-05-31 08:03] VITALS: TEMP 97.9
--- NOTE | 2020-05-31 09:00 | P.PCN ---
Date of Procedure: 05/31/20 Procedure(s) Performed: PREOPERATIVE DIAGNOSIS: 1- Lumbar Degenerative Disc Diseases 2-Lumbar spondylosis with Facet arthropathy without myelopathy. 3-lumbar radiculopathy. POSTOPERATIVE DIAGNOSIS: Same as preop diagnosis. PROCEDURE 1. Lumbar epidural steroid injection under fluoroscopic guidance at the L4-5 level. (Fluoroscopy imaging was available in radiology department) 2. Lumbar epidurogram. ANESTHESIA: Local with 1% lidocaine 3 ml and , moderate sedation with intravenous Versed 2 mg ,and fentanyle 100 Mcg EBL: Minimal PROCEDURE INDICATION: The patient with low back pain and radiculitis symptoms unresponsive to conservative treatment. Fluoroscopy was used to optimize visualization of the needle placement and to maximize safety. PROCEDURE DESCRIPTION / TECHNIQUE: The patient was seen and identified in the preoperative area. Risks, benefits, complications including but not limited to infections ,bleeding ,allergic reaction to the medications ,nerve damage and not complete pain releife , and alternatives were discussed with the patient. The patient agreed to proceed with the procedure and signed the consent. IV was started, and vital signs were stable. Patient was taken to the OR and time out was completed. The patient was placed in the prone position on procedure table and a pillow was placed under the abdomen to reduce lumbar lordosis. The lumbosacral area was prepped and draped in the usual sterile fashion.ere closely monitored during the procedure. Conscious sedation was used during the procedure to decrease patients anxiety. Vital signs was monitered during the entire procedure. Using anterior-posterior fluoroscopy, the L4-5 interlaminar space was identified and the skin over this site was marked and then infiltrated with 1% lidocaine subcutaneously. Subsequently, a 18-gauge 6 inches long Tuohy epidural needle wa s inserted and advanced toward the epidural space using the ``Loss of resistance technique and guided by AP and lateral fluoroscopy. The correct needle position in the epidural space was verified with the injection of 2 mL of the water soluble contrast dye Isovue 200 contrast and observing an excellent epidurogram with the epidural spread of the dye, after negative aspiration for blood and CSF and in the absence of paresthesias. Again after negative aspiration, a 6 ml mixture containing 80 mg of Depo-medrol , and 2 ml of preservative free Normal Saline, and 2 ml of preservative free lidocaine 1% solution was injected and a washout of epidurogram was seen. Needle was withdrawn intact, skin was cleansed, and bandages were applied. COMPLICATIONS: None DISPOSITION / PLANS: The patient was placed in a supine position and transferred to the recovery area in a stable condition for observation. There was no evidence of lower extremity motor or sensory deficit after the procedure. Patient was discharged from the recovery room after meeting discharge criteria. Home discharge instructions were given to the patient by the staff. The patient was reexamined prior to discharge. The patient will schedule a follow up in the clinic in 2-4 weeks. note= patient was scheduled to have right-sided transforaminal epidural steroid injection at L4 5 and L5-S1, but in the preop holding area ,patient reported that he had pain ,on both side, and currently is more severe on the left side, for this reason he discussed with the patient the option of doing lumbar epidural steroid injection interlaminar approach to cover both sides, and patient agreed and he signed the consent
--- NOTE | 2020-05-31 09:25 | FL ---
EXAMINATION TYPE: FL guided pain mgmt statistic DATE OF EXAM: 05/31/2020 HISTORY: Fluoroscopy time 6 seconds of fluoroscopy provided. IMPRESSION: 1. Fluoroscopy time.
[2020-05-31 09:35] VITALS: BP 148/74; PULSE 88; RESP 12
== END | disposition home or self-care (01) ==
LOC: ORPAIN 07:51
PROVIDERS: ATTEND Specialist
DX: M51.16 Intervertebral disc disorders with radiculopathy, lumbar region (principal); M47.26 Other spondylosis with radiculopathy, lumbar region; I25.10 Atherosclerotic heart disease of native coronary artery without angina pectoris; Z79.02 Long term (current) use of antithrombotics/antiplatelets
CPT/HCPCS: 62323; J2250; J1030; J3010; Q9966; 99152

== ENCOUNTER → 2020-07-25 | Outpatient (CLI) | payer MEDICARE, OTHER ==
[2020-07-25 11:34] VITALS: BP 124/81; PULSE 64; RESP 14; TEMP 98.3
--- NOTE | 2020-07-26 20:00 | P.PAINPG ---
Subjective Progress Note Date: 07/25/20 This is a follow-up visit for this 65 years old male with a chronic history of severe low back pain with radiation to the lower extremity, is diagnosed with lumbar radiculopathy, lumbar degenerative disc disease , and lumbar spondylosis with lumbar facet arthropathy, previously we have done transforaminal epidural steroid injection which helped his radicular symptoms in the lower extremity, currently patient reported that most of his pain in the low back area, it is constant and increases with any activity interference with the quality of life patient continue to use Lyrica and Percocet as prescribed by his primary care, he denies any motor or sensory deficit he denies any change in bowel movement or urination he denies any fever or night sweats Objective - Vital Signs Vital signs: Vital Signs Temp 98.3 F 07/25/20 11:27 Pulse 64 07/25/20 11:27 Resp 14 07/25/20 11:27 BP 124/81 07/25/20 11:27 Pulse Ox 96 07/25/20 11:27 - Exam Physical Examinations : -Constitutiona : Cooperative , not in acute distress . -HEENT : nech : supple , no Lymphadenopathy , normal thyroid size . : eyes : no ptosis , no icterus, no photophobia . - neurologic : Cranial nerve II to XII intact , no focal neurological deffecit . -psychatric : alert , oriented X 3 , appropriate affect , intact judgment and insight . -Lymphatic : no Lymphadenopathy . - musculoskeltal : Lumber spine moter stegnth lower extremities ,thigh and legs 5/5 Right side , 5/5 Left side deep tendon reflexes : normal Knee Jerk , normal ankle Jerk lumber facet Loading Test =positive Right , positive Left Fabere test= positive Right , and positive LT . tenderness over the Sacroiliac joint on the Right , and Left sides Discussion of the lumbar spine done in October 2019 [facility]= multilevel lumbar degenerative disc disease and multilevel lumbar facet arthropathy Assessment and Plan Plan: Assessment and plan=1-lumbar radiculopathy 2-lumbar degenerative disc disease. 3-lumbar spondylosis with lumbar facet arthropathy without myelopathy. Patient will be good candidate to have diagnostic medial branch block lumbar area bilaterally at L3, L4, L5 ( to block L4-5, L5-S1 facet ) Patient could benefit from physical therapy, prescription for physical therapy given Time with Patient: Less than 30 PQRS Measure Charge Sheet Measure #130: Documentation of Current Meds in Medical Chart: Patient's medications documented in chart Measure #226: Tobacco Use: Screen & Cessation Intervention: Pt not a tobacco user Measure #111: Pneumonia Vaccination: Pneumococcal vaccine NOT administered or previously given Measure #47: Advance Care Plan: Advance care planning discussed & documented, pt chose/unable to give Measure #412: Opioid Treatment Agreement: No documentation of signed opioid treatment agreement Measure #408: Opioid Therapy Follow-up Evaluation: Patient had NO f/u eval minimum every 3 months during opioid therapy Measure #317: Preventitive Care & Scrn High Bld Press & F/U: Normal blood pressure, f/u not required Measure #128: Body Mass Index (BMI) Screening & Follow-up: BMI documented ABOVE normal parameters - f/u documented Measure #131: Pain Assessment & Follow-up: Pain positive & plan documented, Follow-up scheduled Measure #431: Unhealthy Alcohol Use Preventative Care & Scrn: Patient not identified as an unhealthy alcohol user PQRS Narrative: Smoking Status Never smoker Blood Pressure 124/81 Pain Intensity [Lower Back] 7 Scale Used Numeric (1 - 10) Hx Alcohol Use (MH) Yes Home Medications: Ambulatory Orders Omeprazole 20 mg PO BID 10/07/17 Aspirin 81 mg PO DAILY chew 10/10/17 Atorvastatin [Lipitor] 80 mg PO DAILY #30 tab 10/10/17 Metoprolol Tartrate [Lopressor] 50 mg PO BID #60 tab 10/10/17 Nitroglycerin Sl Tabs [Nitrostat] 0.4 mg SUBLINGUAL Q5M PRN #7 tab 10/10/17 lisinopriL [Zestril] 20 mg PO DAILY #30 tab 10/10/17 Acetaminophen-Codeine 300-30mg [Tylenol w/codeine #3] 1 tab PO Q6HR PRN 12/15/19 Fluticasone Nasal [place] [Flonase Nasal [place]] 2 spr EA NOSTRIL DAILY PRN 04/17/20 Meclizine [Antivert] 25 mg PO TID PRN 07/23/20 Pregabalin [Lyrica] 100 mg PO HS 07/23/20 oxyCODONE-APAP 10-325MG [Percocet 10-325 mg] 1 tab PO TID PRN 07/23/20 Controlled Substance Measures - Controlled Substance Measures Is patient prescribed a controlled substance at discharge?: No
== END | disposition home or self-care (01) ==
LOC: PNWHC3 10:39
PROVIDERS: ATTEND Specialist
DX: M47.26 Other spondylosis with radiculopathy, lumbar region (principal); M51.16 Intervertebral disc disorders with radiculopathy, lumbar region; M46.96 Unspecified inflammatory spondylopathy, lumbar region; Z79.891 Long term (current) use of opiate analgesic; Z79.82 Long term (current) use of aspirin; Z79.899 Other long term (current) drug therapy
CPT/HCPCS: 99211

== ENCOUNTER 2020-08-16 10:57 | Day surgery (SDC) | payer MEDICARE, OTHER ==
[2020-08-14 11:24] VITALS: BMI 47.0
[2020-08-16] MEDS ORDERED: LACTATED RINGERS 1,000 ML IV SCH (11:06)
[2020-08-16 11:13] VITALS: TEMP 98
[2020-08-16] MEDS ORDERED: LACTATED RINGERS 1,000 ML IV ONE ×2 (11:13)
[2020-08-16] MEDS ORDERED: ROPIVACAINE 5MG/ML 20ML VIAL ONE (11:50)
[2020-08-16] MEDS ORDERED: MIDAZOLAM 2 MG/2 ML VIAL ONE (11:50)
--- NOTE | 2020-08-16 12:04 | P.PCN ---
Date of Procedure: 08/16/20 Description of Procedure: Procedure: BILATERAL L4-5, L5-S1 Diagnosis: Lumbar spondylosis without myelopathy Anesthesia: Local and 2 mg IV Versed Imaging: Fluoroscopy was used, images where saved to the medical record The patient was seen and examined in the [facility]. Procedure risks and benefits were fully reviewed with the patient. The patient understands this is a diagnostic if local only is used, as will be the case today. The goal of the procedure is to inject medication onto the medial branch or small nerves that innervate the facet joints. In this way, we can hopefully identify which of these joints, if any, may be contributing to their pain. Informed consent for procedure was obtained. The patient was taken into the office fluoroscopy procedure room and placed prone on the table. A pillow was placed under the abdomen to reduce lumbar lordosis. Vital signs were closely monitored during the procedure. The skin over the area was prepped with Betadine X 3 and draped in usual sterile manner. Sterile technique was observed throughout procedure. Under biplanar fluoroscopic guidance, the target injection area of the L4, L5, Sacral Ala were targeted. A 25 gauge 31/2 inch spinal needle was then placed at the most medial and superior aspect of the transverse process near the "eye of the Hitesh dog". Aspiration for blood was negative. 1 cc of 0.5% Ropivacaine was injected into the targeted areas separately. Trinity were withdrawn intact. No complications were noted during the procedure. The patient tolerated the procedure well. The patient was placed in supine position and transferred to the recovery area for observation and remained stable until discharged home. Home discharge instructions were given to the patient by the staff. We discussed the diagnostic nature of the procedure and schedule the patient for a second medial branch block in 2 weeks. We have given him a pain diary.
[2020-08-16] MEDS ORDERED: IV FLUID CONTINUATION 1,000 ML IV ONE (12:08)
[2020-08-16 12:13] VITALS: RESP 16
[2020-08-16 12:23] VITALS: BP 114/64; PULSE 63
--- NOTE | 2020-08-16 13:17 | FL ---
EXAMINATION TYPE: FL guided pain mgmt statistic DATE OF EXAM: 08/16/2020 COMPARISON: Bilateral facet HISTORY: Of lumbar spine TECHNIQUE: Fluoroscopy. FINDINGS: Fluoroscopic guidance was provided during procedure performed by Dr. Hope. A total of 0.1 minutes of fluoroscopic time was utilized during the procedure and 6 spot images was acquired. IMPRESSION: As Above.
== END 2020-08-16 12:39 | disposition home or self-care (01) ==
LOC: ORPAIN 10:57
PROVIDERS: ATTEND Hospitalist
DX: M47.816 Spondylosis without myelopathy or radiculopathy, lumbar region (principal); Z79.02 Long term (current) use of antithrombotics/antiplatelets
CPT/HCPCS: 64493; 64494; J2250; J2795

== ENCOUNTER 2020-08-31 06:15 | Day surgery (SDC) | payer MEDICARE, OTHER ==
[2020-08-29 11:54] VITALS: BMI 49.0
[~2020-08-31 06:15] MED LIST changes: -IOPAMIDOL M200 10 ML VIAL ONE; -IV FLUID CONTINUATION 1,000 ML IV ONE; -LIDOCAINE 1% (10MG/ML) FOR IV START INTRADERMA ONE; -MIDAZOLAM 2 MG/2 ML VIAL ONE; -fentaNYL (PF) 50 MCG/ML 2 ML AMP ONE; -methylPREDNISolone ACETATE 40 MG/ML 1 ML VIAL ONE
[2020-08-31 06:48] VITALS: RESP 18; TEMP 96.7
[2020-08-31] MEDS ORDERED: LIDOCAINE 1% (10MG/ML) FOR IV START INTRADERMA ONE (06:52)
[2020-08-31] MEDS ORDERED: TRIAMCINOLONE ACETONIDE 40 MG/ML 1 ML VIAL ONE (07:44)
[2020-08-31] MEDS ORDERED: ROPIVACAINE 5MG/ML 20ML VIAL ONE (07:44)
[2020-08-31] MEDS ORDERED: MIDAZOLAM 2 MG/2 ML VIAL ONE (07:44)
--- NOTE | 2020-08-31 08:02 | P.PCN ---
Date of Procedure: 08/31/20 Surgeon: Sujata Callejas Pathology: none sent Condition: stable Disposition: PACU Description of Procedure: PREOPERATIVE DIAGNOSIS : 1- Lumbar spondylosis with Facet Arthropathy without myelopathy . 2- Lumber degenerative disc disease3-morbid obesity POSTOPERATIVE DIAGNOSIS: 1- Lumbar spondylosis with Facet Arthropathy without myelopathy . 2- Lumber degenerative disc disease3-morbid obesity PROCEDURE: Diagnostic bilateral L4 -5 , and L5-S1 medial branch block under fluoroscopy Physician: Sujata Callejas MD ANESTHESIA: Local with 1% lidocaine; moderate sedation by the anesthesia services . EBL: Negligible COMPLICATION: None. PROCEDURE INDICATION: Chronic low back pain secondary to Facet arthropathy unresponsive to conservative treatment. PROCEDURE DESCRIPTION: the patient was seen and identified in the preop holding area , risks and benefits and possible complications of the procedure and alternatives were discussed with the patient, and the patient agreed to proceed with the procedure and signed the consent. IV was started and vital signs monitored during the procedure and fluoroscopy was used to maximize the benefit and accuracy of the needle placement, sedation was given to decrease patient anxiety, patient was taken to the procedure room and placed in prone position vital signs monitored. The patient was brought into the procedure room and placed in prone position. Skin was prepped with Chloraprep and draped in a sterile manner. Lidocaine 1% was used to numb the skin up at the target points that were chosen as follows: at the L5-S1 level which corresponds to the dorsal ramus of L5 the target points were at the superior medial aspect of the sacral ala on each side of the spine on the AP view of fluoroscopy, and for the L3 and L4 medial branches the target points were the connection between the transverse process and the superior to go process of L4 and L5 respectively on the oblique views of fluoroscopy. I used 22-gauge 3-1/2 inch Quincke spinal needles for this procedure and after contacti ng bone at the target points mentioned above I injected 1 mL of a mixture of Kenalog 40 mg +5 MLS of Ropivacaine 0.5% PF . Patient tolerated procedure well. At the end of the procedure the needles removed and a bandage applied after the skin was cleaned the cleaning solution. patient was then taken to the recovery room in stable condition and monitored in the recovery room for 20-30 minutes and discharged home in stable condition after discharge criteria met . A copy of the needle placement picture was saved to the C-arm machine.
[2020-08-31] MEDS ORDERED: IV FLUID CONTINUATION 1,000 ML IV ONE (08:06)
--- NOTE | 2020-08-31 08:32 | FL ---
EXAMINATION TYPE: FL guided pain mgmt statistic DATE OF EXAM: 08/31/2020 FLUOROSCOPY Fluoroscopy time of 9 seconds was used during bilateral lumbar facet block. 4 image/s document/s the procedure.
[2020-08-31 08:36] VITALS: BP 96/61; PULSE 56
== END 2020-08-31 08:50 | disposition home or self-care (01) ==
LOC: ORPAIN 06:15
PROVIDERS: ATTEND Anesthesiology
DX: G89.29 Other chronic pain (principal); M47.816 Spondylosis without myelopathy or radiculopathy, lumbar region; M51.36 Other intervertebral disc degeneration, lumbar region; E66.01 Morbid (severe) obesity due to excess calories; G47.33 Obstructive sleep apnea (adult) (pediatric); I25.10 Atherosclerotic heart disease of native coronary artery without angina pectoris; I25.2 Old myocardial infarction; I10 Essential (primary) hypertension; E78.5 Hyperlipidemia, unspecified; M19.90 Unspecified osteoarthritis, unspecified site; K21.9 Gastro-esophageal reflux disease without esophagitis; Z68.42 Body mass index [BMI] 45.0-49.9, adult; Z79.899 Other long term (current) drug therapy; Z79.82 Long term (current) use of aspirin; Z79.1 Long term (current) use of non-steroidal anti-inflammatories (NSAID); Z79.891 Long term (current) use of opiate analgesic; Z79.02 Long term (current) use of antithrombotics/antiplatelets
CPT/HCPCS: 64493; 64494; J2250; J3301; J2795

== ENCOUNTER → 2020-09-19 | Outpatient (CLI) | payer MEDICARE, OTHER ==
[2020-09-19 08:05] VITALS: BP 132/84; PULSE 72; RESP 20; TEMP 98
--- NOTE | 2020-09-19 08:16 | P.PAINPG ---
Subjective Progress Note Date: 09/18/20 This is a follow-up visit for this 65 years old male with a chronic history of severe low back pain with radiation to the lower extremity, is diagnosed with lumbar radiculopathy, lumbar degenerative disc disease , and lumbar spondylosis with lumbar facet arthropathy, previously we have done transforaminal epidural steroid injection which helped his radicular symptoms in the lower extremity, currently patient reported that most of his pain in the low back area, it is constant and increases with any activity interference with the quality of life patient continue to use Lyrica and Percocet as prescribed by his primary care. He is here for follow-up after bilateral L4-L5, L5-S1 medial branch blocks Patient notes that he had good relief with the recent medial branch blocks. He is accompanied by his and even she notes he had more functionality. Pain came from about a 6 to a 2 out of 10. Patient would like to proceed with radio frequency ablation. Overall the patient and his have significant concerns about the pandemic and what their chances are of getting it coming to the hospit al. I assured them that we take all the necessary precautions and it is up to them whether they would like to wait or pursue the procedure. They decided to pursue the procedure he denies any motor or sensory deficit he denies any change in bowel movement or urination he denies any fever or night sweats - Exam Physical Examinations : -Constitutiona : Cooperative , not in acute distress . -HEENT : nech : supple , no Lymphadenopathy , normal thyroid size . : eyes : no ptosis , no icterus, no photophobia . - neurologic : Cranial nerve II to XII intact , no focal neurological deffecit . -psychatric : alert , oriented X 3 , appropriate affect , intact judgment and insight . -Lymphatic : no Lymphadenopathy . - musculoskeltal : Lumber spine moter stegnth lower extremities ,thigh and legs 5/5 Right side , 5/5 Left side deep tendon reflexes : normal Knee Jerk , normal ankle Jerk lumber facet Loading Test =positive Right , positive Left Fabere test= positive Right , and positive LT . tenderness over the Sacroiliac joint on the Right , and Left sides Discussion of the lumbar spine done in October 2019 [facility]= multilevel lumbar degenerative disc disease and multilevel lumbar facet arthropathy Assessment and Plan Plan: Assessment and plan=1-lumbar radiculopathy 2-lumbar degenerative disc disease. 3-lumbar spondylosis with lumbar facet arthropathy without myelopathy. Patient will be good candidate to have RFA bilaterally at L3, L4, L5 ( to block L4-5, L5-S1 facet ) Time with Patient: Less than 30 PQRS Measure Charge Sheet Measure #130: Documentation of Current Meds in Medical Chart: Patient's medications documented in chart Measure #226: Tobacco Use: Screen & Cessation Intervention: Pt not a tobacco user Measure #111: Pneumonia Vaccination: Pneumococcal vaccine NOT administered or previously given Measure #47: Advance Care Plan: Advance care planning discussed & documented, pt chose/unable to give Measure #412: Opioid Treatment Agreement: No documentation of signed opioid treatment agreement Measure #408: Opioid Therapy Follow-up Evaluation: Patient had NO f/u eval min imum every 3 months during opioid therapy Measure #317: Preventitive Care & Scrn High Bld Press & F/U: Normal blood pressure, f/u not required Measure #128: Body Mass Index (BMI) Screening & Follow-up: BMI documented ABOVE normal parameters - f/u documented Measure #131: Pain Assessment & Follow-up: Pain positive & plan documented, Follow-up scheduled Measure #431: Unhealthy Alcohol Use Preventative Care & Scrn: Patient not identified as an unhealthy alcohol user PQRS Narrative: Smoking Status Never smoker Blood Pressure 124/81 Pain Intensity [Lower Back] 7 Scale Used Numeric (1 - 10) Hx Alcohol Use (MH) Yes Controlled Substance Measures - Controlled Substance Measures Is patient prescribed a controlled substance at discharge?: No PQRS Measure Charge Sheet PQRS Narrative: Smoking Status Never smoker Scale Used Numeric (1 - 10) Hx Alcohol Use (MH) Yes Home Medications: Ambulatory Orders Omeprazole 20 mg PO BID 10/07/17 Aspirin 81 mg PO DAILY chew 10/10/17 Atorvastatin [Lipitor] 80 mg PO DAILY #30 tab 10/10/17 Metoprolol Tartrate [Lopressor] 50 mg PO BID #60 tab 10/10/17 Nitroglycerin Sl Tabs [Nitrostat] 0.4 mg SUBLINGUAL Q5M PRN #7 tab 10/10/17 lisinopriL [Zestril] 20 mg PO DAILY #30 tab 10/10/17 Fluticasone Nasal [place] [Flonase Nasal [place]] 2 spr EA NOSTRIL DAILY PRN 04/17/20 Meclizine [Antivert] 25 mg PO TID PRN 07/23/20 Pregabalin [Lyrica] 100 mg PO HS 07/23/20 Ibuprofen [Motrin] 400 mg PO Q8HR PRN 08/14/20 Tamsulosin [Flomax] 0.4 mg PO DAILY 08/29/20 traMADol HCL [Ultram] 50 mg PO Q6HR PRN 08/29/20 Controlled Substance Measures - Controlled Substance Measures Is patient prescribed a controlled substance at discharge?: No
== END | disposition home or self-care (01) ==
LOC: PNWHC3 07:44
PROVIDERS: ATTEND Anesthesiology
DX: M51.16 Intervertebral disc disorders with radiculopathy, lumbar region (principal); M47.26 Other spondylosis with radiculopathy, lumbar region; Z79.82 Long term (current) use of aspirin; Z79.891 Long term (current) use of opiate analgesic; Z79.899 Other long term (current) drug therapy
CPT/HCPCS: 99211

== ENCOUNTER 2020-10-16 09:10 | Day surgery (SDC) | payer MEDICARE, OTHER ==
[2020-10-10 09:21] VITALS: BMI 47.0
[2020-10-16] MEDS ORDERED: LACTATED RINGERS 1,000 ML IV SCH (09:26)
[2020-10-16 09:44] VITALS: TEMP 97.2
[2020-10-16] MEDS ORDERED: LIDOCAINE 1% (10MG/ML) FOR IV START INTRADERMA ONE (10:02)
[2020-10-16 10:05] LABS: Glucose,Whole Blood 94 mg/dL (75-99)
[2020-10-16] MEDS ORDERED: ROPIVACAINE 5MG/ML 20ML VIAL ONE (10:23)
[2020-10-16] MEDS ORDERED: methylPREDNISolone ACETATE 40 MG/ML 1 ML VIAL ONE (10:23)
[2020-10-16] MEDS ORDERED: MIDAZOLAM 2 MG/2 ML VIAL ONE (10:23)
[2020-10-16] MEDS ORDERED: fentaNYL (PF) 50 MCG/ML 2 ML AMP ONE (10:23)
--- NOTE | 2020-10-16 11:04 | P.PCN ---
Date of Procedure: 10/16/20 Procedure(s) Performed: PREOPERATIVE DIAGNOSIS: 1-Lumbar Spondylosis with Facet Arthropathy without myelopathy. 2- Lumber degenerative disc disease. POSTOPERATIVE DIAGNOSIS: 1- Lumbar Spondylosis with Facet Arthropathy without myelopathy. 2- Lumber degenerative disc disease. PROCEDURES : Bilateral Radiofrequency thermocoagulation, L3 , L4 , and L5 medial branch, with fluoroscopic guidance (fluoroscopy images available in the radiology department) ( to denervate the facet joint at L4-5 ,and L5-S1 levels ) ANESTHESIA: Moderate sedation with intravenous versed 2 mg and fentaneyl 50 mcg, and local infiltration with Ropivacaine 0.5 % . EBL: Minimal PROCEDURE INDICATION: The patient with low back pain secondary to lumbar facet arthropathy who had more than 50% relief of her pain with previous diagnostic lumbar medial branch block with bupivacaine. PROCEDURE DESCRIPTION / TECHNIQUE: The patient was seen and identified in the preoperative area. Risks, benefits, complications, including but not limited to risk of infection ,bleeding , allergic reactions to the medications and no complete pain releife , and alternatives were discussed with the patient, the patient agreed to proceed with the procedure and signed the consent. IV was started. Vital signs remained stable throughout the procedure. Patient was taken to the OR and time out was completed. The patient was placed in the prone position on the procedure table. The lumber area was prepped and draped in the usual sterile fashion. . Vital signs were closely monitored during the procedure .IV sedation was used during the procedure to decrease patients anxiety. Using AP and then oblique fluoroscopy, the ``eye of the Hitesh dog corresponding to the connection between the superior and transverse articular processes of right L3, L4, and L5 were identified, marked, and localized with 1% lidocaine. Subsequently, a [id number] radiofrequency cannula with a 10- mm active tip was advanced guided by fluoroscopy to each of the``eyes of the Hitesh dog at right L3, L4, and L5. Each site then underwent sensory testing at 50 Hz and 0 to 1 volt and motor testing at 2.5 Hz and 0 to 3 volt with local stimulation, but no radicular symptoms down the legs. Thereafter each sites underwent radiofrequency thermocoagulation at 80 degrees celsius for 90 seconds after injecting 0.5 ml of PF Ropivacaine 1ml, then after the thermocoagulation done , 1 ml of the block solution containing Depo-Medrol 20 mg and 3 ml of Ropivacaine 0.5% was injected at the right L3 , L4 , and L5 , levels after negative aspiration of CSF and blood and with no paresthesias. Cannulas were retracted while injecting lidocaine 1% until the needle is out. The same procedure was repeated at the level of Left L3, L4, and L5 levels. At the end of the procedure, the skin was cleansed and bandages were applied. COMPLICATIONS: No acute complications. DISPOSITION / PLANS: The patient was placed in a supine position and transferred to the recovery area in a stable condition for observation and was discharged from the recovery room after meeting discharge criteria. Home discharge instructions given to the patient by the staff. The patient was reexamined prior to discharge. The patient will schedule a follow up in the clinic in 2-4 weeks.
[2020-10-16] MEDS ORDERED: IV FLUID CONTINUATION 400 ML IV ONE (11:14)
--- NOTE | 2020-10-16 11:20 | FL ---
Fluoroscopy INDICATION: Pain FINDINGS: Fluoroscopy time: 29 seconds. Images obtained: 8. IMPRESSIONS: 1. Documentation of fluoroscopy.
[2020-10-16 11:21] VITALS: RESP 16
[2020-10-16 11:28] VITALS: BP 105/61; PULSE 59
== END 2020-10-16 11:42 | disposition home or self-care (01) ==
LOC: ORPAIN 09:10
PROVIDERS: ATTEND Specialist
DX: M47.816 Spondylosis without myelopathy or radiculopathy, lumbar region (principal); M51.36 Other intervertebral disc degeneration, lumbar region
CPT/HCPCS: 64635; 64636; J2250; J1030; J3010; J2795; 99152; 99153

== ENCOUNTER → 2020-11-05 | Outpatient (CLI) | payer MEDICARE, OTHER ==
[2020-11-05 10:11] VITALS: BP 147/88; PULSE 77; RESP 16; TEMP 97.7
--- NOTE | 2020-11-05 10:20 | P.PN ---
Progress Note - Text Progress Note Date: 11/05/20 Progress Note - Text 65-year-old male presents for follow-up visit after after a bilateral lumbar radio pharmacy ablation of the L4-L5, L5-S1 facet joint medial branches. He has not endorsed any relief from the procedure which was done roughly 3 weeks ago. He still having difficulty with low back pain, with ambulation, and performing activities of daily living. He's also had epidural steroid injections in the past that provided him with temporary relief for 2-5 days. Patient notes that he had good relief with the recent medial branch blocks. He is accompanied by his and even she notes he had more functionality. However, he has not experienced same relief with RFA. His symptoms are the same as prior to RFA. Patient is looking for all available options. We discussed referral to an orthopedic labor delivery specialist for evaluation and recommendations. We'll refer patient to Dr. Peguero. He denies any motor or sensory deficit he denies any change in bowel movement or urination he denies any fever or night sweats In addition to above, 13-point review of systems is also negative for chest pain, shortness of breath, changes in vision, changes in hearing, new onset weakness, abdominal pain, diarrhea, extreme fatigue, malaise, fever, skin changes, homicidal or suicidal ideation, or bowel or bladder incontinence. Physical exam: Gen: A&O 3, NAD, BMI greater than 40 HEENT: Atraumatic, normocephalic, pupils equal and reactive to light Integ: No skin abnormalities or lesions noted CVS: Regular rate and rhythm, adequate peripheral pulses Pulmn: Nonlabored, no wheezing Lumbar spine: Palpation: Tenderness along the lumbar paraspinal muscles as well as a sacroiliac joint on the right more so than the left. Inspection: No deformities or scoliosis Range of motion: nromal flexion and extension Facet loading: Positive bilateral at L4 and L5 OLIVIA test: + Right Reflexes: 2/2 bilateral knee and ankle Neuromuscular: Sensation: Intact from L1-S1 Motor: 5/5 hip flexion, 5/5 knee extension, 5/5 (EHL), 5/5 Dorsiflexion, 5/5 Plantar Flexion bilateral Gait: No gait abnormalities, no assist device utilized Imaging: Reviewed in EMR Assessment: 1. Lumbar degenerative disc disease 2. Lumbar spondylosis 3. Morbid obesity Plan: 1. Explanation: Diagnoses, prognoses, and multiple treatment options including but not limited to physical therapy, interventional therapies, adjuvant medical therapies, narcotic medication therapies, and surgery were discussed with the patient and all questions were answered to the patient's satisfaction. 2. Opioid agreement: Not required 3. Counseling: The patient was counseled extensively on SMOKING CESSATION, BODY MASS INDEX, EXERCISE. Specifically, the patient was instructed regarding the importance of smoking cessation, obesity, and exercise in the context of both chronic pain and overall health. 4. Procedures: None at the moment. 5. Consultations: Referral given to Moe Peguero 6. Investigations: None 7. Medications: None 8. Disposition: We'll refer to Dr. Peguero for eval and recommendations. PQRS measures: On separate sheet
== END | disposition home or self-care (01) ==
LOC: PNWHC3 09:50
PROVIDERS: ATTEND Anesthesiology
DX: M51.36 Other intervertebral disc degeneration, lumbar region (principal); M47.816 Spondylosis without myelopathy or radiculopathy, lumbar region; E66.01 Morbid (severe) obesity due to excess calories
CPT/HCPCS: 99211